=== PATIENT | male | born 1970 | race Caucasian/White ===

== ENCOUNTER → 2020-04-11 | Outpatient (CLI) | payer BC ==
--- NOTE | 2020-04-15 15:42 | SLEEPCENT ---
NOCTURNAL POLYSOMNOGRAPHY DATE: 04/11/2020 ORDERED BY: SHENA Lara Nocturnal polysomnography was performed for evaluation of sleep physiology in this patient with complaints of excessive somnolence, morning headaches, and nonrestorative sleep. 8 hours and 13 minutes of data were reviewed. There were 307 minutes of sleep identified. Sleep latency was prolonged at 112 minutes. REM latency was normal at 85 minutes. Sleep architecture showed poor progression. There was a period of REM late in the study. Overall sleep efficiency was 63.5%. The electrocardiogram showed a sinus rhythm with an average heart rate of 68 beats per minute. EEG showed fairly normal waveforms for wake and sleep. There were 78 respiratory events identified of 10 seconds in duration or greater for an apnea-hypopnea index of 15.2. The events were obstructive, not exclusive to sleep stage, and not exclusive to body position. Arousals from respiratory events occurred 7.2 times per hour, and oxygen desaturations were seen below 90%. There was some activity in the limb leads, but limb movement arousals were few. IMPRESSION: Obstructive sleep apnea syndrome (G47.33), apnea-hypopnea index 15.2. RECOMMENDATION: The patient should be encouraged to return to [facility]. In the interim, alcohol and sedative avoidance should be practiced and caution exercised during the operation of motor vehicles.
== END ==
LOC: M SLEEP 20:00
PROVIDERS: ATTEND Nurse Practitioner Family
DX: R06.83 Snoring (principal)

== ENCOUNTER → 2020-04-28 | Outpatient (CLI) | payer BC ==
--- NOTE | 2020-05-01 11:05 | SLEEPCENT ---
NOCTURNAL POLYSOMNOGRAPHY DATE: 04/28/2020 ORDERED BY: SHENA Lara Nocturnal polysomnography was performed for the titration of pressure therapy in this patient with obstructive sleep apnea syndrome with apnea-hypopnea index of 15.2. For testing, the patient was fit with a [employer] Juliet View full face mask of medium size was used, 4 cm of water pressure were applied to the circuit, and the lights were extinguished. 8 hours and 4 minutes of data were reviewed. There were 347.5 minutes of sleep identified. Sleep latency was prolonged at 109 minutes. REM latency was mildly prolonged at 91.5 minutes. Sleep architecture was good with three REM cycles. Overall sleep efficiency was 72.5%. The electrocardiogram showed a sinus rhythm with an average heart rate of 75 beats per minute. EEG showed normal waveforms for wake and sleep. Respiratory events were fully palliated with CPAP at a pressure of 11. There was some mild scattered limb activity. Limb movement arousal index on this occasion was 2.8. IMPRESSION: Obstructive sleep apnea syndrome (G47.33). RECOMMENDATION: Nightly use of pressure therapy 11 cm of water.
== END ==
LOC: M SLEEP 20:00
PROVIDERS: ATTEND Nurse Practitioner Family
DX: G47.33 Obstructive sleep apnea (adult) (pediatric) (principal)

== ENCOUNTER → 2020-08-07 | Outpatient (CLI) | payer BC ==
--- NOTE | 2020-08-07 17:05 | REPVR ---
PROCEDURE INFORMATION: Exam: MR Head Without Contrast Exam date and time: 08/07/2020 4:31 PM Age: 50 years old Clinical indication: Pain; Headache and other: Trigeminal neuralgia; Additional info: G50.0-trigeminal neuralgia TECHNIQUE: Imaging protocol: MR of the head without contrast. COMPARISON: CT Head without contrast 01/12/2014 9:41 PM FINDINGS: Brain: No acute infarct identified on the diffusion-weighted imaging. No parenchymal hemorrhage. No evidence of brain parenchymal edema or intracranial mass effect. The T2 weighted imaging demonstrates a punctate focus of increased signal intensity in the left frontal lobe subcortical white matter, of doubtful clinical consequence/relevance, may reflect trace chronic small vessel ischemic change. There is an incidental midline posterior fossa arachnoid cyst. On focused sequences of the brainstem, no evidence of mass or mass effect in the trigeminal nerve root entry zone regions. 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 Cerebral ventricles: No ventriculomegaly. Bones/joints: Trapped fluid in the right petrous apex, likely incidental. Paranasal sinuses: Normal as visualized. No acute sinusitis. Mastoid air cells: Normal as visualized. No mastoid effusion. Orbital cavity: Unremarkable. Soft tissues: Unremarkable. No visible track oiler space masses. IMPRESSION: Essentially unremarkable MRI brain. Electronically signed by: Maggy Read On 08/07/2020 17:04:56 PM
== END ==
LOC: M RAD 14:01
PROVIDERS: ATTEND Family Medicine
DX: G50.0 Trigeminal neuralgia (principal); G93.0 Cerebral cysts

== ENCOUNTER → 2022-02-09 | Outpatient (CLI) | payer BC | LOC: M LABSMTC 11:01 | PROVIDERS: ATTEND Anesthesiology | DX: Z01.812 Encounter for preprocedural laboratory examination (principal); Z20.822 Contact with and (suspected) exposure to COVID-19 ==

== ENCOUNTER 2022-02-13 10:16 | Day surgery (SDC) | payer BC ==
[~2022-02-13] VITALS: Ht 185.4 cm; Wt 128.4 kg
[~2022-02-13 10:16] MED LIST: BUPR-71 PO; BUPR1TAB53 PO; CLON2TAB14 PO; DIVA125C6 PO; NS 1,000 ML IV ONE; OMEP40CA4 PO; VITA500038 PO; XANA1TAB2 PO
[2022-02-13] MEDS ORDERED: fentaNYL 100 MCG/2 ML INJECTION As Ordered ONE (10:41)
[2022-02-13 12:54] VITALS: BP 133/89
== END 2022-02-13 13:09 | disposition home or self-care (01) ==
LOC: M OPP 10:16
PROVIDERS: ATTEND Internal Medicine Gastroenterology
DX: Z12.11 Encounter for screening for malignant neoplasm of colon (principal); D12.6 Benign neoplasm of colon, unspecified; K64.4 Residual hemorrhoidal skin tags; K64.8 Other hemorrhoids; K22.89 Other specified disease of esophagus; K21.00 Gastro-esophageal reflux disease with esophagitis, without bleeding; K29.70 Gastritis, unspecified, without bleeding; G47.30 Sleep apnea, unspecified; F41.9 Anxiety disorder, unspecified; Z79.899 Other long term (current) drug therapy
CPT/HCPCS: 43239; 45385; 88305; J3010

== ENCOUNTER → 2022-11-11 | Outpatient (CLI) | payer BC ==
[~2022-11-11] MED LIST changes: -NS 1,000 ML IV ONE
== END ==
LOC: M RAD 11:36
PROVIDERS: ATTEND Physical Therapist
DX: N63.32 Unspecified lump in axillary tail of the left breast (principal)

== ENCOUNTER → 2024-04-10 | Outpatient (REF) | payer BC ==
[2024-04-10 13:48] LABS: APPEARANCE, URINE CLEAR (CLEAR); BACTERIA, URINE AUTO NEGATIVE (NEGATIVE); BILIRUBIN, URINE AUTO NEGATIVE (NEGATIVE); BLOOD, URINE BLOOD NEGATIVE (NEGATIVE); COLOR, URINE YELLOW (YELLOW); GLUCOSE, URINE (UA) AUTO NEGATIVE (NEGATIVE); KETONE, URINE AUTO NEGATIVE (NEGATIVE); LEUKOCYTE ESTERASE, URINE AUTO NEGATIVE (NEGATIVE); MUCUS, URINE SMALL (NEGATIVE); NITRITE, URINE AUTO NEGATIVE (NEGATIVE); PROTEIN, URINE AUTO NEGATIVE (NEGATIVE); RBC, URINE AUTO 0 /HPF (0-3); SPECIFIC GRAVITY URINE AUTO 1.021 (1.002-1.035); SQUAMOUS EPITHELIAL CELL UR AU 0 /HPF (0-6); WBC, URINE AUTO 1 /HPF (0-3)
== END ==
LOC: M SMT 12:55
PROVIDERS: ATTEND Nurse Practitioner Family
DX: R39.9 Unspecified symptoms and signs involving the genitourinary system (principal)

== ENCOUNTER → 2024-04-10 | Outpatient (CLI) | payer BC | LOC: M PLALAB 10:18 | PROVIDERS: ATTEND Nurse Practitioner Family | DX: R97.20 Elevated prostate specific antigen [PSA] (principal) ==

== ENCOUNTER → 2024-04-19 | Outpatient (CLI) | payer BC ==
[~2024-04-19] MED LIST changes: +PROHANCE 279.3MG/ML 15ML VIAL ONE; +PROHANCE 279.3MG/ML 5ML VIAL ONE
== END ==
LOC: M PLAIMG 07:07
PROVIDERS: ATTEND Nurse Practitioner Family
DX: R97.20 Elevated prostate specific antigen [PSA] (principal)
CPT/HCPCS: 72197; A9576

== ENCOUNTER → 2024-05-02 | Outpatient (REF) | payer BC ==
[~2024-05-02] MED LIST changes: -PROHANCE 279.3MG/ML 15ML VIAL ONE; -PROHANCE 279.3MG/ML 5ML VIAL ONE
== END ==
LOC: M SMT PRO 13:18
PROVIDERS: ATTEND Urology
DX: C61 Malignant neoplasm of prostate (principal)